=== PATIENT | male | born 1980 | race Caucasian/White ===

== ENCOUNTER 2023-12-31 13:42 | Inpatient (IN) | payer BC, MEDICAID ==
[~2023-12-31] VITALS: Ht 182.9 cm; Wt 96.6 kg
[2023-12-31] MEDS ORDERED: VANCOMYCIN 1000MG/250ML 250 ML IV STA (17:32)
[2023-12-31 18:06] LABS: BASOPHILS % 0.2 % (0.0-2.0); EOSINOPHILS % 1.9 % (0.0-5.0); HEMATOCRIT. 38.1 % (42.0-52.0); HEMOGLOBIN. 13.1 g/dL (14.0-18.0); LYMPHOCYTES % 28.8 % (20.0-50.0); MEAN CORPUSCULAR HEMOGLOBIN 29.3 pg (28.0-32.0); MEAN CORPUSCULAR HGB CONC 34.3 g/dL (31.0-37.0); MEAN CORPUSCULAR VOLUME 85.4 fL (80.0-94.0); MEAN PLATELET VOLUME 7.2 fl (7.4-10.4); MONOCYTES % 6.2 % (2.0-8.0); NEUTROPHILS % 62.9 % (40.0-76.0); PLATELET 388 x1000/uL (130-400); RED BLOOD CELL COUNT 4.46 mill/uL (4.7-6.1); WHITE BLOOD COUNT 10.8 x1000/uL (4.5-11.0)
[2023-12-31 18:10] LABS: CHLORIDE 108 mEq/L (98-107); POTASSIUM 3.7 mEq/L (3.5-5.1); SODIUM 140 mEq/L (136-145)
[2023-12-31 18:11] LABS: CALCIUM 9.2 mg/dL (8.7-10.4); CARBON DIOXIDE 25 mEq/L (21-32)
[2023-12-31 18:16] LABS: CREATININE 0.7 mg/dL (0.6-1.3); GLUCOSE 90 mg/dL (70-105); PROTHROMBIN TIME 11.2 sec (9.6-11.0); UREA NITROGEN BLOOD 12 mg/dL (9-23)
[2023-12-31] MEDS: PIPERACILLIN/TAZO 3.375G/50ML 50 ML IV NR (18:43)
[2023-12-31 18:46] LABS: CLARITY URINE CLEAR (CLEAR); COLOR URINE YELLOW (YELLOW); GLUCOSE URINE NEGATIVE (NEGATIVE); KETONES URINE NEGATIVE (NEGATIVE); LEUKOCYTE ESTERASE URINE NEGATIVE (NEGATIVE); NITRITE URINE NEGATIVE (NEGATIVE); OCCULT BLOOD URINE 1+ (NEGATIVE); PH URINE 5.5 (4.5-8.0); PROTEIN URINE 3+ (NEGATIVE); SPECIFIC GRAVITY URINE 1.021 (1.005-1.030); UROBILINOGEN URINE 0.2 E.U./dL (0.2-1.0)
[2023-12-31 19:16] LABS: BACTERIA URINE TRACE; SQUAMOUS EPITHELIAL CELL URINE RARE /lpf (RARE/1+); WBC URINE 0-2 /hpf (0-2)
[2023-12-31] MEDS: VANCOMYCIN 1GM PMX (XELLIA) 200 ML IV NR (21:41)
[2023-12-31 21:55] VITALS: BP 146/75; PULSE 71; RESP 20; TEMP 36.9474; O2SAT 100
[2023-12-31] MEDS ORDERED: PIPERACILLIN/TAZO 3.375G/50ML 50 ML IV SCH (22:00)
[2023-12-31 22:20] VITALS: BP 146/75; PULSE 71; RESP 12; TEMP 36.974
[2024-01-01] MEDS ORDERED: DEXTROSE 50% WATER 50ML SYRINGE IV PRN
[2024-01-01 04:00] VITALS: BP 143/85; PULSE 70; RESP 20; TEMP 36.33624; O2SAT 98
[2024-01-01] MEDS ORDERED: VANCOMYCIN 1GM PMX (XELLIA) 200 ML IV SCH (06:00)
[2024-01-01] MEDS: PIPERACILLIN/TAZO 3.375G/50ML 50 ML IV SCH (06:09)
[2024-01-01] MEDS: BLOOD SUGAR DIAGNOSTIC STRIP TEST SCH (07:49)
[2024-01-01 08:00] VITALS: BP 119/69; PULSE 62; RESP 16; TEMP 36.3918; O2SAT 97
[2024-01-01 08:04] LABS: BASOPHILS % 0.4 % (0.0-2.0); HEMATOCRIT. 38.6 % (42.0-52.0); HEMOGLOBIN. 12.9 g/dL (14.0-18.0); LYMPHOCYTES % 24.2 % (20.0-50.0); MEAN CORPUSCULAR HEMOGLOBIN 28.7 pg (28.0-32.0); MEAN CORPUSCULAR HGB CONC 33.3 g/dL (31.0-37.0); MEAN CORPUSCULAR VOLUME 86.2 fL (80.0-94.0); MEAN PLATELET VOLUME 7.5 fl (7.4-10.4); MONOCYTES % 8.6 % (2.0-8.0); NEUTROPHILS % 64.8 % (40.0-76.0); PLATELET 362 x1000/uL (130-400); RED BLOOD CELL COUNT 4.48 mill/uL (4.7-6.1); RED CELL DISTRIBUTION WIDTH 12.8 % (11.6-14.6); WHITE BLOOD COUNT 9.1 x1000/uL (4.5-11.0)
[2024-01-01 08:18] LABS: CALCIUM 9.5 mg/dL (8.7-10.4); CARBON DIOXIDE 27 mEq/L (21-32); CHLORIDE 107 mEq/L (98-107); POTASSIUM 4.5 mEq/L (3.5-5.1); SODIUM 140 mEq/L (136-145)
[2024-01-01 08:23] LABS: CREATININE 0.6 mg/dL (0.6-1.3); GLUCOSE 150 mg/dL (70-105)
[2024-01-01 08:24] LABS: TRIGLYCERIDE 188 mg/dL (0-150); UREA NITROGEN BLOOD 9 mg/dL (9-23)
[2024-01-01 08:25] LABS: CHOLESTEROL 174 mg/dL (<200); LDL CHOLESTEROL 123 mg/dL (5-100)
[2024-01-01 08:26] LABS: HDL CHOLESTEROL 36 mg/dL (>55)
[2024-01-01] MEDS: LOSARTAN 50 MG TABLET PO SCH (08:42)
[2024-01-01] MEDS: ENOXAPARIN 40MG/0.4ML SYR SUBCUT SCH (08:43)
[2024-01-01] MEDS: ASPIRIN 81MG TABLET PO SCH (08:43)
[2024-01-01 12:00] VITALS: BP 146/91; PULSE 70; RESP 18; TEMP 36.28068; O2SAT 99
[2024-01-01] MEDS ORDERED: NALOXONE HCL 0.4MG/ML VIAL IV PRN (12:45)
[2024-01-01] MEDS: HYDROCODONE/ACETAMINOPHEN 5/325MG TABLET PO PRN (12:48)
[2024-01-01] MEDS: INSULIN LISPRO 100 UNITS/ML SUBCUT SCH (12:57)
[2024-01-01] MEDS: VANCOMYCIN 1GM PMX (XELLIA) 200 ML IV SCH (15:00)
[2024-01-01 16:00] VITALS: BP 144/85; PULSE 73; RESP 18; TEMP 36.16956; O2SAT 98
[2024-01-01 20:00] VITALS: BP 163/88; PULSE 80; RESP 18; TEMP 36.78072; O2SAT 100
[2024-01-02] VITALS: BP 105/62; PULSE 66; RESP 18; TEMP 37.00296; O2SAT 98
[2024-01-02] MEDS: CEFEPIME IV SCH (05:04)
[2024-01-02 08:00] VITALS: BP 136/78; PULSE 67; RESP 19; TEMP 36.05844; O2SAT 100
[2024-01-02] MEDS ORDERED: LIDOCAINE HCL 1% 10 MG/ML 10ML VIAL ONE (11:53)
[2024-01-02 12:00] VITALS: BP 136/78; PULSE 67; RESP 19; TEMP 36.05844; O2SAT 100
[2024-01-02] MEDS ORDERED: VANCOMYCIN 1.25GM PMX (XELLIA) 250 ML IV SCH (14:00)
[2024-01-02] MEDS: CEFAZOLIN 2GM/100ML 100 ML IV SCH (15:44)
[2024-01-02 16:00] VITALS: BP 126/76; PULSE 67; RESP 19; TEMP 36.05844; O2SAT 100
[2024-01-02 20:00] VITALS: BP 110/69; PULSE 87; RESP 18; TEMP 36.33624; O2SAT 87
[2024-01-02 22:17] LABS: CREATINE KINASE 57 IU/L (46-171)
[2024-01-03 04:00] VITALS: BP 111/74; PULSE 71; RESP 18; TEMP 36.22512; O2SAT 99
[2024-01-03 08:00] VITALS: BP 111/74; PULSE 71; RESP 18; TEMP 36.22512; O2SAT 99
[2024-01-03 12:00] VITALS: BP 144/88; PULSE 69; RESP 18; TEMP 35.44728; O2SAT 100
[2024-01-03 15:35] VITALS: BP 110/78; PULSE 90; TEMP 98; O2SAT 99
== END 2024-01-03 16:33 | disposition home health service (06) | DRG 344 ==
LOC: ER 13:42 → 6WST 22:26
PROVIDERS: ADMIT Internal Medicine; ATTEND Internal Medicine
PROC: 02HV33Z Insertion of Infusion Device into Superior Vena Cava, Percutaneous Approach (ICD-10-PCS; principal; 2024-01-02)
PROC: B548ZZA Ultrasonography of Superior Vena Cava, Guidance (ICD-10-PCS; 2024-01-02)
DX: E11.69 Type 2 diabetes mellitus with other specified complication (principal); M86.8X7 Other osteomyelitis, ankle and foot; E11.621 Type 2 diabetes mellitus with foot ulcer; L97.528 Non-pressure chronic ulcer of other part of left foot with other specified severity; I10 Essential (primary) hypertension; Z79.82 Long term (current) use of aspirin; Z79.4 Long term (current) use of insulin; Z79.899 Other long term (current) drug therapy
CPT/HCPCS: 36415; 36573; 71045; 73620; 73718; 80048; 80061; 80202; 81003; 82550; 82962; 83036; 84145; 85025; 85651; 99285; C1725; J0690; J0692; J1650; J1815; J2543; J3370; J3490